=== PATIENT | male | born 1970 | race Caucasian/White ===

== ENCOUNTER → 2018-09-15 | Outpatient (CLI) | payer OTHER ==
[~2018-09-15] MED LIST: ARNUITY ELLIP200 MCG INH; CYMBALTA60 MG PO; Ipratropium Brom3 ML INH; LIPITOR20 MG PO; LISINOPRIL5 MG PO; METFORMIN850 MG PO; NEURONTIN300 MG PO; PULMICORT0.25 MG/2 INH; SPIRIVA RESPIMAT4 GM INH; STRIVERDI RESPIM4 GM INH; TRAZODONE50 MG PO; VICTOZA SQ; VITAMIN B COMP1 EAC1 PO; VITAMIN D5000 UNI1 PO
[2018-09-15 14:44] LABS: BASO # 0.1 10*3/uL (0.0-0.1); BASO % 0.6 % (0.0-1.0); EOS # 0.4 10*3/uL (0.0-0.4); EOS % 3.1 % (1.0-4.0); HEMATOCRIT 47.5 % (42.0-52.0); HEMOGLOBIN 15.3 g/dl (14.0-18.0); LYMPH # 4.9 10*3/uL (1.3-4.4); LYMPH % 40.3 % (27.0-41.0); MEAN CELL VOLUME 91.2 fl (80.0-94.0); MEAN CORPUSCULAR HGB 29.4 pg (27.0-31.0); MEAN CORPUSCULAR HGB CONC 32.2 g/dl (33.0-37.0); MEAN PLATELET VOLUME 9.9 fl (9.6-12.3); MONO # 0.6 10*3/uL (0.1-1.0); NEUT # 6.1 10*3/uL (2.3-7.9); NEUT % 50.7 % (47.0-73.0); PLATELET COUNT AUTOMATED 317 10*3/uL (130-400); RED BLOOD COUNT 5.21 10*6/uL (4.50-5.90); RED CELL DISTRI WIDTH 12.9 % (0-14.5); WHITE BLOOD COUNT 12.1 10*3/uL (4.8-10.8)
[2018-09-15 15:15] LABS: ALBUMIN 3.6 gm/dl (3.1-4.5); ALKALINE PHOSPHATASE 88 U/L (45-117); BUN 9 mg/dl (7-24); CHLORIDE 103 mmol/L (98-107); CHOLESTEROL 146 mg/dL (<200); CREATININE 0.84 mg/dL (0.70-1.30); HDL CHOLESTEROL 45 mg/dl (40-60); LDL CHOLESTEROL 77 mg/dL (9-159); POTASSIUM 4.3 mmol/L (3.5-5.1); SGOT/AST 15 IU/L (3-35); SGPT/ALT 27 U/L (12-78); SODIUM 139 mmol/L (136-145); TOTAL PROTEIN 7.4 gm/dL (6.4-8.2); TRIGLYCERIDES 120 mg/dl (<150); VLDL CHOLESTEROL 24 mg/dL (6-40)
[2018-09-15 15:22] LABS: THYROID STIM HORMONE (HS) 0.709 uIU/ml (0.358-4.75); VITAMIN D, 25-HYDROXY 67.2 ng/mL (30-100)
== END | disposition home or self-care (01) ==
LOC: LAB 14:02
PROVIDERS: Registered Nurse Flight
DX: E55.9 Vitamin D deficiency, unspecified (principal); E11.42 Type 2 diabetes mellitus with diabetic polyneuropathy; E78.5 Hyperlipidemia, unspecified

== ENCOUNTER 2018-12-11 22:07 | Emergency (ER) | payer OTHER ==
[~2018-12-11] VITALS: Ht 177.8 cm; Wt 152.0 kg
== END 2018-12-12 00:47 | disposition home or self-care (01) ==
LOC: ED 22:07
DX: S61.210A Laceration without foreign body of right index finger without damage to nail, initial encounter (principal); F17.200 Nicotine dependence, unspecified, uncomplicated; Z79.899 Other long term (current) drug therapy; Z98.890 Other specified postprocedural states; Z88.0 Allergy status to penicillin; W26.0XXA Contact with knife, initial encounter; Y93.89 Activity, other specified; Y92.090 Kitchen in other non-institutional residence as the place of occurrence of the external cause; Y99.9 Unspecified external cause status

== ENCOUNTER → 2018-12-19 | Outpatient (CLI) | payer OTHER ==
[2018-12-19 13:38] LABS: BASO # 0.1 10*3/uL (0.0-0.1); BASO % 0.8 % (0.0-1.0); EOS # 0.5 10*3/uL (0.0-0.4); HEMATOCRIT 47.5 % (42.0-52.0); HEMOGLOBIN 15.6 g/dl (14.0-18.0); LYMPH # 4.8 10*3/uL (1.3-4.4); LYMPH % 45.1 % (27.0-41.0); MEAN CELL VOLUME 92.6 fl (80.0-94.0); MEAN CORPUSCULAR HGB 30.4 pg (27.0-31.0); MEAN CORPUSCULAR HGB CONC 32.8 g/dl (33.0-37.0); MEAN PLATELET VOLUME 9.9 fl (9.6-12.3); MONO # 0.7 10*3/uL (0.1-1.0); MONO % 6.4 % (3.0-9.0); NEUT # 4.5 10*3/uL (2.3-7.9); NEUT % 42.4 % (47.0-73.0); PLATELET COUNT AUTOMATED 265 10*3/uL (130-400); RED BLOOD COUNT 5.13 10*6/uL (4.50-5.90); RED CELL DISTRI WIDTH 12.9 % (0-14.5); WHITE BLOOD COUNT 10.5 10*3/uL (4.8-10.8)
== END | disposition home or self-care (01) ==
LOC: LAB 13:04
PROVIDERS: Registered Nurse Flight
DX: E11.42 Type 2 diabetes mellitus with diabetic polyneuropathy (principal); D72.829 Elevated white blood cell count, unspecified

== ENCOUNTER → 2019-03-26 | Outpatient (CLI) | payer OTHER ==
[2019-03-26 14:57] LABS: HEMATOCRIT 47.2 % (42.0-52.0); HEMOGLOBIN 15.9 g/dl (14.0-18.0); MEAN CELL VOLUME 90.6 fl (80.0-94.0); MEAN CORPUSCULAR HGB 30.5 pg (27.0-31.0); MEAN CORPUSCULAR HGB CONC 33.7 g/dl (33.0-37.0); MEAN PLATELET VOLUME 9.5 fl (9.6-12.3); RED BLOOD COUNT 5.21 10*6/uL (4.50-5.90); RED CELL DISTRI WIDTH 12.6 % (0-14.5); WHITE BLOOD COUNT 9.7 10*3/uL (4.8-10.8)
[2019-03-26 15:27] LABS: ALBUMIN 3.5 gm/dl (3.1-4.5); BUN 12 mg/dl (7-24); CHLORIDE 107 mmol/L (98-107); CHOLESTEROL 237 mg/dL (<200); CREATININE 0.92 mg/dL (0.70-1.30); POTASSIUM 4.1 mmol/L (3.5-5.1); SGOT/AST 11 IU/L (3-35); SGPT/ALT 16 U/L (12-78); SODIUM 140 mmol/L (136-145); TRIGLYCERIDES 192 mg/dl (<150); VLDL CHOLESTEROL 38 mg/dL (6-40)
[2019-03-26 15:30] LABS: ALKALINE PHOSPHATASE 109 U/L (45-117); HDL CHOLESTEROL 43 mg/dl (40-60); LDL CHOLESTEROL 156 mg/dL (9-159)
== END | disposition home or self-care (01) ==
LOC: LAB 14:06
PROVIDERS: Registered Nurse Flight
DX: E11.42 Type 2 diabetes mellitus with diabetic polyneuropathy (principal); R53.83 Other fatigue; E78.5 Hyperlipidemia, unspecified

== ENCOUNTER 2019-06-21 16:07 | Inpatient (IN) | payer OTHER ==
[~2019-06-21] VITALS: Ht 177.8 cm; Wt 158.4 kg
[~2019-06-21 16:07] MED LIST changes: -HUMALOG100 UNIT/1 SQ; -LANTUS SOL100 UNIT/1 SQ; -LISINOPRIL2.5 MG PO; -LOPRESSOR25 MG PO; -PRAMIPEXOLE D0.25 MG PO; -RESTORIL30 M1 PO; -WELLBUTRIN SR150 MG PO; -ZITHROMAX250 MG PO
[2019-06-21 16:08] VITALS: BP 155/92
[2019-06-21 16:35] LABS: BASO # 0.1 10*3/uL (0.0-0.1); BASO % 0.8 % (0.0-1.0); EOS # 0.2 10*3/uL (0.0-0.4); EOS % 2.4 % (1.0-4.0); HEMATOCRIT 48.9 % (42.0-52.0); HEMOGLOBIN 16.9 g/dl (14.0-18.0); LYMPH # 3.8 10*3/uL (1.3-4.4); LYMPH % 39.5 % (27.0-41.0); MEAN CELL VOLUME 87.9 fl (80.0-94.0); MEAN CORPUSCULAR HGB 30.4 pg (27.0-31.0); MEAN CORPUSCULAR HGB CONC 34.6 g/dl (33.0-37.0); MEAN PLATELET VOLUME 10.4 fl (9.6-12.3); MONO # 0.5 10*3/uL (0.1-1.0); MONO % 5.5 % (3.0-9.0); NEUT % 51.4 % (47.0-73.0); PLATELET COUNT AUTOMATED 313 10*3/uL (130-400); RED BLOOD COUNT 5.56 10*6/uL (4.50-5.90); RED CELL DISTRI WIDTH 12.3 % (0-14.5); WHITE BLOOD COUNT 9.6 10*3/uL (4.8-10.8)
[2019-06-21 16:50] LABS: ALBUMIN 3.6 gm/dl (3.1-4.5); ALKALINE PHOSPHATASE 144 U/L (45-117); BUN 10 mg/dl (7-24); CHLORIDE 97 mmol/L (98-107); CREATININE 1.48 mg/dL (0.70-1.30); POTASSIUM 4.3 mmol/L (3.5-5.1); SGOT/AST 23 IU/L (3-35); SGPT/ALT 38 U/L (12-78); SODIUM 128 mmol/L (136-145); TOTAL PROTEIN 7.3 gm/dL (6.4-8.2)
[2019-06-21 17:27] LABS: BILIRUBIN NEGATIVE (NEGATIVE); BLOOD NEGATIVE (NEGATIVE); CLARITY CLEAR (CLEAR); COLOR YELLOW (YELLOW); GLUCOSE 3+ (NEGATIVE); KETONE NEGATIVE (NEGATIVE); LEUKO ESTERASE NEGATIVE (NEGATIVE); NITRITE NEGATIVE (NEGATIVE); PH 5.5 (5.0-9.0); SPECIFIC GRAVITY <= 1.005 (1.005-1.030); UROBILINOGEN 0.2 E.U./dl (0.2-1.0)
[2019-06-21 17:30] VITALS: BP 150/80
[2019-06-21 17:39] LABS: EPITHELIAL CELLS 0-2; YEAST 1+
--- NOTE | 2019-06-21 18:15 | NUR ---
A 49, admitted to , under the services of DEANA Mojica DO with a diagnosis of UNCONTROLLED DM WITH HYPERGLYCEMIA, COPD EXACERBATION. Chief complaint is ABNORMAL LABS. Patient arrived via bed from ER. Monitor applied. Initial assessment completed. Vital signs taken and recorded. DEANA MOJICA DO notified of admission to the unit. Orders received. See assessment for past medical history, medications and allergies. Patient and/or family oriented to unit. [facility] visitation policy reviewed. Clothing/patient valuable form completed. JUAN LUIS LLOYD
--- NOTE | 2019-06-21 18:30 | NUR ---
DR KUMAR NOTIFIED BS 425 AND REPEATED 468. ALSO LACTIC ACID 3.0
--- NOTE | 2019-06-21 18:45 | NUR ---
GIVE 10 UNITS INSULIN NOW PER DR HUERTA.
[2019-06-21] MEDS ORDERED: RESTORIL30 M1 PO (18:51)
[2019-06-21] MEDS ORDERED: WELLBUTRIN SR150 MG PO (18:52)
[2019-06-21] MEDS ORDERED: PRAMIPEXOLE D0.25 MG PO (18:52)
[2019-06-21 18:57] VITALS: BP 124/51
--- NOTE | 2019-06-21 19:10 | NUR ---
PHYSICIAN WAS NOTIFIED OF DR. GRAY CONSULT. RESPONSE OF NOTIFICATION WAS OK DR NUNEZ WILL SEE HIM IN AM AND I WILL BE MEDICAL FILE CLERK OVERNIGHT IF THERE ARE ANY PROBLEMS.. JUAN LUIS LLOYD
[2019-06-21 20:00] VITALS: BP 133/78
[2019-06-22] VITALS: BP 107/72
[2019-06-22 06:43] LABS: BASO # 0.1 10*3/uL (0.0-0.1); BASO % 0.7 % (0.0-1.0); EOS # 0.4 10*3/uL (0.0-0.4); EOS % 4.1 % (1.0-4.0); HEMATOCRIT 44.9 % (42.0-52.0); HEMOGLOBIN 15.2 g/dl (14.0-18.0); LYMPH # 4.6 10*3/uL (1.3-4.4); LYMPH % 48.5 % (27.0-41.0); MEAN CELL VOLUME 89.4 fl (80.0-94.0); MEAN CORPUSCULAR HGB 30.3 pg (27.0-31.0); MEAN CORPUSCULAR HGB CONC 33.9 g/dl (33.0-37.0); MEAN PLATELET VOLUME 10.2 fl (9.6-12.3); MONO # 0.6 10*3/uL (0.1-1.0); MONO % 6.5 % (3.0-9.0); NEUT # 3.8 10*3/uL (2.3-7.9); NEUT % 39.8 % (47.0-73.0); PLATELET COUNT AUTOMATED 264 10*3/uL (130-400); RED BLOOD COUNT 5.02 10*6/uL (4.50-5.90); RED CELL DISTRI WIDTH 12.6 % (0-14.5); WHITE BLOOD COUNT 9.5 10*3/uL (4.8-10.8)
[2019-06-22 07:15] LABS: ALBUMIN 2.9 gm/dl (3.1-4.5); ALKALINE PHOSPHATASE 100 U/L (45-117); BUN 7 mg/dl (7-24); CHLORIDE 107 mmol/L (98-107); CHOLESTEROL 210 mg/dL (<200); CREATININE 0.91 mg/dL (0.70-1.30); FREE T4 1.11 ng/dl (0.76-1.46); HDL CHOLESTEROL 28 mg/dl (40-60); LDL CHOLESTEROL 106 mg/dL (9-159); PHOSPHOROUS 2.9 mg/dL (2.5-4.9); POTASSIUM 3.3 mmol/L (3.5-5.1); SGOT/AST 18 IU/L (3-35); SGPT/ALT 34 U/L (12-78); TOTAL PROTEIN 6.1 gm/dL (6.4-8.2); TRIGLYCERIDES 379 mg/dl (<150); VLDL CHOLESTEROL 76 mg/dL (6-40)
[2019-06-22 07:20] LABS: THYROID STIM HORMONE (HS) 0.786 uIU/ml (0.358-4.75)
[2019-06-22 07:26] LABS: SODIUM 140 mmol/L (136-145)
[2019-06-22 07:30] VITALS: BP 116/72
--- NOTE | 2019-06-22 07:30 | NUR ---
ASSESSMENT COMPLETED AND DOCUMENTED. PT RESTING IN BED WITH NO COMPLAINTS AT THIS TIME. CALL LIGHT IN REACH. SHARMAINE PINA SPLAINEYCC
--- NOTE | 2019-06-22 09:30 | NUR ---
PT HAS NO COMPLAINTS AT THIS TIME. ECHO IS BEING DONE AT THE BEDSIDE. SHARMAINE PINA [facility] [place]
[2019-06-22 10:14] LABS: VITAMIN D, 25-HYDROXY 41.9 ng/mL (30-100)
[2019-06-22 11:57] VITALS: BP 116/69
--- NOTE | 2019-06-22 11:57 | NUR ---
ASSESSMENT COMPLTED AND DOCUMENTED. PT IS RESTING IN BED COMFORTABLY WITH NO COMPLAINTS AT THIS TIME. SHARMAINE PINA SPCC
--- NOTE | 2019-06-22 13:18 | NUR ---
Grain Picker in to talk to patient. Patient states lives at HOME with ALONE. There are NO steps in the home. Physician: Arabella TRINH [facility]acy: [facility] Home health services: NONE Patient's level of ADLs: INDEPENDENT Patient has working utilities: YES DME: GLUCOMETER, CPAP, NEBULIZER Follow-up physician's appointment after d/c: WILL BE MADE BY HOSPITALIST NURSE DIRECTOR ON DISCHARGE. Does patient want to access PORTAL?: NO Discharge plan PT LIVES AT HOME ALONE AND STATES HE IS INDEPENDENT IN HIS CARE. DENIES HE WILL HAVE ANY NEEDS ON DISCHARGE. WILL RETURN HOME WHEN MEDICALLY STABLE. WILL CONTINUE TO FOLLOW. STATES HE WILL HAVE A RIDE HOME.. ASHU DAVIDSON
--- NOTE | 2019-06-22 13:26 | NUR ---
PT RESTING IN BED COMFORTABLY WITH NO COMPLAINTS AT THIS TIME. REPORT GIVEN TO LORRAINE YING. SHARMAINE PINA SPNRCC
[2019-06-22 16:00] VITALS: BP 115/73
[2019-06-22 20:00] VITALS: BP 120/71
--- NOTE | 2019-06-22 20:06 | NUR ---
24 HR CHART CHECK COMPLETE.
[2019-06-23] VITALS: BP 106/48
--- NOTE | 2019-06-23 00:20 | NUR ---
PT RESTING IN BED. RESP-EASY AND REGULAR. IVF INFUSING WITH NO PROBLEM. NO C/O AT THIS TIME. CALL LIGHT IN REACH. SEE SHIFT ASSESSMENT.
--- NOTE | 2019-06-23 04:00 | NUR ---
PT RESTING IN BED WITH EYES CLOSED. RESP-EASY AND REGULAR. CALL LIGHT IN REACH.
--- NOTE | 2019-06-23 06:00 | NUR ---
TOLERATED ROUTINE MED WITH NO PROBLEM. [id number], SEE EMAR. CALL LIGHT IN REACH.
[2019-06-23 06:32] LABS: BASO # 0.1 10*3/uL (0.0-0.1); BASO % 0.7 % (0.0-1.0); EOS # 0.4 10*3/uL (0.0-0.4); EOS % 4.1 % (1.0-4.0); HEMATOCRIT 43.6 % (42.0-52.0); HEMOGLOBIN 14.8 g/dl (14.0-18.0); LYMPH # 4.2 10*3/uL (1.3-4.4); LYMPH % 48.5 % (27.0-41.0); MEAN CELL VOLUME 90.8 fl (80.0-94.0); MEAN CORPUSCULAR HGB 30.8 pg (27.0-31.0); MEAN CORPUSCULAR HGB CONC 33.9 g/dl (33.0-37.0); MONO # 0.5 10*3/uL (0.1-1.0); MONO % 5.4 % (3.0-9.0); NEUT # 3.6 10*3/uL (2.3-7.9); NEUT % 40.8 % (47.0-73.0); PLATELET COUNT AUTOMATED 238 10*3/uL (130-400); RED CELL DISTRI WIDTH 12.5 % (0-14.5); WHITE BLOOD COUNT 8.7 10*3/uL (4.8-10.8)
[2019-06-23 07:02] LABS: ALBUMIN 2.9 gm/dl (3.1-4.5); ALKALINE PHOSPHATASE 99 U/L (45-117); BUN 4 mg/dl (7-24); CHLORIDE 109 mmol/L (98-107); CREATININE 0.83 mg/dL (0.70-1.30); POTASSIUM 3.4 mmol/L (3.5-5.1); SGOT/AST 22 IU/L (3-35); SGPT/ALT 38 U/L (12-78); SODIUM 140 mmol/L (136-145); TOTAL PROTEIN 5.9 gm/dL (6.4-8.2)
[2019-06-23 12:00] VITALS: BP 110/75
[2019-06-23 16:00] VITALS: BP 139/76
[2019-06-23 20:00] VITALS: BP 111/65
--- NOTE | 2019-06-23 20:00 | NUR ---
RESTING IN BED WITH HOB SLIGHTLY ELEVATED. ALERT/ORIENTED. PULSE OX 98% ON ROOM AIR. LUNGS DIMINISHED BILATERALLY; NO COUGH NOTED AT THIS TIME. PT. VOICES NO C/O AT THIS TIME; NO DISTRESS NOTED. CALL LIGHT WITHIN REACH.
--- NOTE | 2019-06-23 22:00 | NUR ---
BLOOD SUGAR 286; COVERAGE PER EMAR.
--- NOTE | 2019-06-23 23:00 | NUR ---
IV started right forearm with #22 protective cath after 1 attempts. Site prepped with Chloroprep. Sterile dressing applied. Patient tolerated procedure well. IV infusing at cc/hr. CHLOE HAHN
[2019-06-24] VITALS: BP 92/52
--- NOTE | 2019-06-24 06:00 | NUR ---
BLOOD SUGAR 228; COVERAGE PER EMAR. PT. VOICES NO C/O AT THIS TIME. CALL LIGHT WITHIN REACH.
[2019-06-24 07:21] LABS: BUN 7 mg/dl (7-24); CHLORIDE 110 mmol/L (98-107); CREATININE 0.84 mg/dL (0.70-1.30); POTASSIUM 3.8 mmol/L (3.5-5.1); SODIUM 140 mmol/L (136-145)
[2019-06-24 08:00] VITALS: BP 122/78
--- NOTE | 2019-06-24 08:30 | NUR ---
24 HR chart check completed.
--- NOTE | 2019-06-24 09:00 | NUR ---
RESTING IN BED WITH NO ACUTE DISTRESS NOTED. RESPIRATIONS EASY. LUNGS DIMINISHED. PULSE OX 95% RA. CLAIMS INFREQUENT PRODUCTIVE COUGH FOR YELLOW. CALL LIGHT WITHIN REACH. NO VOICED COMPLAINTS
--- NOTE | 2019-06-24 09:30 | NUR ---
DR NUNEZ (CARDIOLOGY) HERE TO ASSESS PATIENT AND DISCUSS PLAN OF CARE
--- NOTE | 2019-06-24 09:40 | NUR ---
DR TORRES AND RESIDENTS HERE TO ASSESS PATIENT AND DISCUSS PLAN OF CARE
[2019-06-24 12:00] VITALS: BP 117/72
--- NOTE | 2019-06-24 12:30 | NUR ---
RESTING IN BED WITH NO DISTRESS NOTED. CALL LIGHT WITHIN REACH. NO VOICED COMPLAINTS
[2019-06-24 16:00] VITALS: BP 102/54
[2019-06-24 20:00] VITALS: BP 117/84
[2019-06-25] VITALS: BP 102/60
--- NOTE | 2019-06-25 03:35 | NUR ---
24 HR chart check completed.
[2019-06-25 08:00] VITALS: BP 98/72
--- NOTE | 2019-06-25 09:01 | NUR ---
pt off floor for stress test.
--- NOTE | 2019-06-25 10:14 | NUR ---
INFORMED CONSENT SIGNED FOR LEXISCAN STRESS TEST WITH DR. FOX. RESTING EKG NSR, HR 84, BP 118/74. PULSE OX 96% AND LUNGS DEMINISHED BILATERALLY. COMPLETED ONE MINUTE OF LEXISCAN PROTOCOL RECEIVING LEXISCAN 0.4MG OVER 10 SEC[address] NO ARRHYTHMIAS OR ST CHANGES NOTED. PT C/O ODD FEELING. LAST RECOVERY HR 98, BP 112/68. WAITING NUCLEAR SCANNING IN STABLE CONDITION.
--- NOTE | 2019-06-25 10:52 | NUR ---
PT STATES HE WILL RETURN HOME WITH NO NEEDS ON DISCHARGE. FOR STRESS TEST TODAY. WILL CONTINUE TO FOLLOW.
[2019-06-25 11:58] VITALS: BP 127/61
[2019-06-25] MEDS ORDERED: ZITHROMAX250 MG PO (16:07)
[2019-06-25] MEDS ORDERED: LISINOPRIL2.5 MG PO (16:07)
[2019-06-25] MEDS ORDERED: LOPRESSOR25 MG PO (16:07)
[2019-06-25] MEDS ORDERED: HUMALOG100 UNIT/1 SQ (16:16)
[2019-06-25] MEDS ORDERED: LANTUS SOL100 UNIT/1 SQ (16:16)
--- NOTE | 2019-06-25 16:54 | NUR ---
[facility] Discharge instructions reviewed with patient/family. Patient receptive and verbalizes understanding. Follow-up care arranged. Written instructions given to patient/family. STEPAN ANDERS
== END 2019-06-25 17:11 | disposition home or self-care (01) | DRG 420 ==
LOC: ED 16:07 → 4E 17:08 → EDHOLD 17:08 → 4E 18:12
PROVIDERS: Emergency Medicine; Hospitalist; Internal Medicine; ADMIT Internal Medicine
PROC: 4A02XM4 Measurement of Cardiac Total Activity, External Approach (ICD-10-PCS; principal; 2019-06-25)
PROC: 3E073KZ Introduction of Other Diagnostic Substance into Coronary Artery, Percutaneous Approach (ICD-10-PCS; 2019-06-25)
DX: E11.65 Type 2 diabetes mellitus with hyperglycemia (principal); N17.0 Acute kidney failure with tubular necrosis; J44.1 Chronic obstructive pulmonary disease with (acute) exacerbation; E87.1 Hypo-osmolality and hyponatremia; R74.0 Nonspecific elevation of levels of transaminase and lactic acid dehydrogenase [LDH]; R07.89 Other chest pain; I10 Essential (primary) hypertension; E78.5 Hyperlipidemia, unspecified; E66.01 Morbid (severe) obesity due to excess calories; Z68.43 Body mass index [BMI] 50.0-59.9, adult; E44.0 Moderate protein-calorie malnutrition; E87.8 Other disorders of electrolyte and fluid balance, not elsewhere classified; E87.6 Hypokalemia; F17.210 Nicotine dependence, cigarettes, uncomplicated; E11.49 Type 2 diabetes mellitus with other diabetic neurological complication; G47.33 Obstructive sleep apnea (adult) (pediatric); I25.10 Atherosclerotic heart disease of native coronary artery without angina pectoris; I47.2 Ventricular tachycardia; Z71.6 Tobacco abuse counseling; Z82.3 Family history of stroke; Z83.3 Family history of diabetes mellitus; Z82.49 Family history of ischemic heart disease and other diseases of the circulatory system; Z88.0 Allergy status to penicillin; Z79.899 Other long term (current) drug therapy

== ENCOUNTER → 2019-06-21 | Outpatient (CLI) | payer OTHER ==
[~2019-06-21] MED LIST changes: +HUMALOG100 UNIT/1 SQ; +LANTUS SOL100 UNIT/1 SQ; +LISINOPRIL2.5 MG PO; +LOPRESSOR25 MG PO; +PRAMIPEXOLE D0.25 MG PO; +RESTORIL30 M1 PO; +WELLBUTRIN SR150 MG PO; +ZITHROMAX250 MG PO
[2019-06-21 13:48] LABS: ALBUMIN 3.4 gm/dl (3.1-4.5); BUN 9 mg/dl (7-24); CHLORIDE 98 mmol/L (98-107); CHOLESTEROL 258 mg/dL (<200); CREATININE 1.47 mg/dL (0.70-1.30); POTASSIUM 4.1 mmol/L (3.5-5.1); SGOT/AST 19 IU/L (3-35); SODIUM 131 mmol/L (136-145)
[2019-06-21 13:50] LABS: ALKALINE PHOSPHATASE 139 U/L (45-117); HDL CHOLESTEROL 28 mg/dl (40-60); SGPT/ALT 38 U/L (12-78); TOTAL PROTEIN 6.9 gm/dL (6.4-8.2); TRIGLYCERIDES 813 mg/dl (<150)
== END | disposition home or self-care (01) ==
LOC: LAB 12:31
PROVIDERS: Registered Nurse Flight
DX: E11.42 Type 2 diabetes mellitus with diabetic polyneuropathy (principal); E78.5 Hyperlipidemia, unspecified

== ENCOUNTER → 2019-12-06 | Outpatient (CLI) | payer OTHER ==
[~2019-12-06] MED LIST changes: +HUMALOG100 UNIT/1 SQ; +LANTUS SOL100 UNIT/1 SQ; +LISINOPRIL2.5 MG PO; +LOPRESSOR25 MG PO; +PRAMIPEXOLE D0.25 MG PO; +RESTORIL30 M1 PO; +WELLBUTRIN SR150 MG PO; +ZITHROMAX250 MG PO
[2019-12-06 11:26] LABS: ALBUMIN 3.3 gm/dl (3.1-4.5); ALKALINE PHOSPHATASE 109 U/L (45-117); BILIRUBIN, DIRECT 0.1 mg/dL (0.0-0.2); BUN 6 mg/dl (7-24); CHLORIDE 108 mmol/L (98-107); CHOLESTEROL 126 mg/dL (<200); CREATININE 0.92 mg/dL (0.70-1.30); FREE T4 1.14 ng/dl (0.76-1.46); HDL CHOLESTEROL 37 mg/dl (40-60); LDL CHOLESTEROL 44 mg/dL (9-159); POTASSIUM 3.7 mmol/L (3.5-5.1); SGOT/AST 20 IU/L (3-35); SGPT/ALT 40 U/L (12-78); SODIUM 137 mmol/L (136-145); TOTAL PROTEIN 6.7 gm/dL (6.4-8.2); TRIGLYCERIDES 226 mg/dl (<150); VLDL CHOLESTEROL 45 mg/dL (6-40)
[2019-12-06 11:34] LABS: BILIRUBIN NEGATIVE (NEGATIVE); BLOOD NEGATIVE (NEGATIVE); CLARITY SL CLOUDY (CLEAR); COLOR YELLOW (YELLOW); GLUCOSE 3+ (NEGATIVE); KETONE NEGATIVE (NEGATIVE); SPECIFIC GRAVITY 1.025 (1.005-1.030); UROBILINOGEN 0.2 E.U./dl (0.2-1.0)
[2019-12-06 11:35] LABS: LEUKO ESTERASE NEGATIVE (NEGATIVE); NITRITE NEGATIVE (NEGATIVE)
== END | disposition home or self-care (01) ==
LOC: LAB 10:27
PROVIDERS: Internal Medicine
DX: E11.65 Type 2 diabetes mellitus with hyperglycemia (principal); E55.9 Vitamin D deficiency, unspecified; E66.01 Morbid (severe) obesity due to excess calories

== ENCOUNTER → 2020-01-30 | Outpatient (CLI) | payer OTHER ==
[2020-01-30 14:45] LABS: HEMATOCRIT 48.9 % (42.0-52.0); MEAN CELL VOLUME 86.2 fl (80.0-94.0); MEAN CORPUSCULAR HGB CONC 34.8 g/dl (33.0-37.0); MEAN PLATELET VOLUME 9.9 fl (9.6-12.3); PLATELET COUNT AUTOMATED 293 10*3/uL (130-400); RED BLOOD COUNT 5.67 10*6/uL (4.50-5.90); RED CELL DISTRI WIDTH 12.1 % (0-14.5); WHITE BLOOD COUNT 11.9 10*3/uL (4.8-10.8)
[2020-01-30 15:11] LABS: BASOPHILS 1 % (0-1); PLATELET SUFFICIENCY NORMAL (NORMAL); TOTAL CELLS COUNTED 100 #CELLS
[2020-01-30 15:20] LABS: ALBUMIN 3.6 gm/dl (3.1-4.5); ALKALINE PHOSPHATASE 114 U/L (45-117); BUN 7 mg/dl (7-24); CHLORIDE 103 mmol/L (98-107); CREATININE 0.87 mg/dL (0.70-1.30); POTASSIUM 3.9 mmol/L (3.5-5.1); SGOT/AST 28 IU/L (3-35); SGPT/ALT 50 U/L (12-78); SODIUM 133 mmol/L (136-145); T3 UPTAKE 35 % (31-39); TOTAL PROTEIN 7.4 gm/dL (6.4-8.2)
[2020-01-30 15:27] LABS: THYROXINE (T4) TOTAL 9.9 ug/dl (4.5-12.1)
[2020-01-31 09:07] LABS: FOLLICLE STIMULATING HORMONE 6.8 mIU/mL (1.5-12.4); LUTEINIZING HORMONE 11.1 mIU/mL (1.7-8.6); PROGESTERONE 0.1 ng/mL (0.0-0.5); PROLACTIN 6.9 ng/mL (4.0-15.2)
== END | disposition home or self-care (01) ==
LOC: LAB 13:00 → US 13:00
PROVIDERS: Urology
DX: N28.89 Other specified disorders of kidney and ureter (principal); N40.0 Benign prostatic hyperplasia without lower urinary tract symptoms; R53.82 Chronic fatigue, unspecified

== ENCOUNTER → 2020-02-13 | Outpatient (CLI) | payer OTHER ==
[2020-02-13 10:21] LABS: BILIRUBIN NEGATIVE (NEGATIVE); BLOOD NEGATIVE (NEGATIVE); CLARITY SL CLOUDY (CLEAR); COLOR YELLOW (YELLOW); GLUCOSE 3+ (NEGATIVE); KETONE 1+ (NEGATIVE); LEUKO ESTERASE NEGATIVE (NEGATIVE); NITRITE NEGATIVE (NEGATIVE); SPECIFIC GRAVITY 1.015 (1.005-1.030); UROBILINOGEN 0.2 E.U./dl (0.2-1.0)
[2020-02-13 10:48] LABS: ALBUMIN 3.5 gm/dl (3.1-4.5); ALKALINE PHOSPHATASE 126 U/L (45-117); BILIRUBIN, DIRECT 0.2 mg/dL (0.0-0.2); BUN 5 mg/dl (7-24); CHLORIDE 104 mmol/L (98-107); CHOLESTEROL 93 mg/dL (<200); CREATININE 0.93 mg/dL (0.70-1.30); HDL CHOLESTEROL 40 mg/dl (40-60); LDL CHOLESTEROL 19 mg/dL (9-159); POTASSIUM 3.8 mmol/L (3.5-5.1); SGOT/AST 21 IU/L (3-35); SGPT/ALT 49 U/L (12-78); SODIUM 135 mmol/L (136-145); TOTAL PROTEIN 7.1 gm/dL (6.4-8.2); TRIGLYCERIDES 172 mg/dl (<150); VLDL CHOLESTEROL 34 mg/dL (6-40)
== END | disposition home or self-care (01) ==
LOC: LAB 09:51
PROVIDERS: Internal Medicine
DX: E11.65 Type 2 diabetes mellitus with hyperglycemia (principal); E78.5 Hyperlipidemia, unspecified; E55.9 Vitamin D deficiency, unspecified

== ENCOUNTER → 2020-05-27 | Outpatient (CLI) | payer OTHER ==
[2020-05-27 09:45] LABS: BILIRUBIN Negative (Negative); BLOOD Trace-Lysed (Negative); CLARITY Cloudy (Clear); COLOR Yellow (Yellow); GLUCOSE 3+ (Negative); KETONE Trace (Negative); LEUKO ESTERASE 1+ (Negative); NITRITE Negative (Negative); SPECIFIC GRAVITY >= 1.030 (1.001-1.030); UROBILINOGEN 0.2 E.U./dl (0.0-1.0)
[2020-05-27 09:53] LABS: ALBUMIN 3.4 gm/dl (3.1-4.5); ALKALINE PHOSPHATASE 148 U/L (45-117); BILIRUBIN, DIRECT 0.2 mg/dL (0.0-0.2); BUN 5 mg/dl (7-24); CHLORIDE 105 mmol/L (98-107); CHOLESTEROL 157 mg/dL (<200); CREATININE 0.74 mg/dL (0.70-1.30); HDL CHOLESTEROL 35 mg/dl (40-60); LDL CHOLESTEROL 71 mg/dL (9-159); POTASSIUM 3.7 mmol/L (3.5-5.1); SGOT/AST 17 IU/L (3-35); SGPT/ALT 43 U/L (12-78); SODIUM 137 mmol/L (136-145); TRIGLYCERIDES 254 mg/dl (<150); VLDL CHOLESTEROL 51 mg/dL (6-40)
[2020-05-27 10:11] LABS: VITAMIN D, 25-HYDROXY 37.8 ng/mL (30-100)
[2020-05-27 11:03] LABS: BACTERIA 2+; EPITHELIAL CELLS 21-30; WBC 21-30 wbc/hpf (0-5); YEAST 3+
== END | disposition home or self-care (01) ==
LOC: LAB 09:15
PROVIDERS: ATTEND Internal Medicine
DX: E11.42 Type 2 diabetes mellitus with diabetic polyneuropathy (principal); E78.5 Hyperlipidemia, unspecified; G62.9 Polyneuropathy, unspecified; E55.9 Vitamin D deficiency, unspecified

== ENCOUNTER → 2020-09-09 | Outpatient (CLI) | payer OTHER ==
[2020-09-09 15:40] LABS: BILIRUBIN Negative (Negative); BLOOD Negative (Negative); CLARITY Clear (Clear); COLOR Yellow (Yellow); GLUCOSE 3+ (Negative); KETONE 1+ (Negative); LEUKO ESTERASE Negative (Negative); NITRITE Negative (Negative); SPECIFIC GRAVITY >= 1.030 (1.001-1.030); UROBILINOGEN 0.2 E.U./dl (0.0-1.0)
[2020-09-09 15:59] LABS: ALBUMIN 3.3 gm/dl (3.1-4.5); BUN 9 mg/dl (7-24); CHLORIDE 103 mmol/L (98-107); POTASSIUM 3.7 mmol/L (3.5-5.1); SODIUM 134 mmol/L (136-145)
[2020-09-09 16:03] LABS: ALKALINE PHOSPHATASE 192 U/L (45-117); BILIRUBIN, DIRECT 0.1 mg/dL (0.0-0.2); CHOLESTEROL 245 mg/dL (<200); CREATININE 0.83 mg/dL (0.70-1.30); HDL CHOLESTEROL 37 mg/dl (40-60); SGOT/AST 9 IU/L (3-35); SGPT/ALT 28 U/L (12-78); TOTAL PROTEIN 7.1 gm/dL (6.4-8.2); TRIGLYCERIDES 481 mg/dl (<150)
[2020-09-09 16:04] LABS: WBC 21-30 wbc/hpf (0-5)
[2020-09-09 16:05] LABS: BACTERIA 1+; YEAST 2+
[2020-09-09 17:14] LABS: VITAMIN D, 25-HYDROXY 20.6 ng/mL (30-100)
== END | disposition home or self-care (01) ==
LOC: LAB 15:15
PROVIDERS: ATTEND Internal Medicine
DX: E11.65 Type 2 diabetes mellitus with hyperglycemia (principal); E78.5 Hyperlipidemia, unspecified; E55.9 Vitamin D deficiency, unspecified; G62.9 Polyneuropathy, unspecified

== ENCOUNTER → 2020-09-12 | Outpatient (CLI) | payer OTHER | END | disposition home or self-care (01) | LOC: LAB 10:41 | PROVIDERS: ATTEND Internal Medicine | DX: N39.0 Urinary tract infection, site not specified (principal) ==

== ENCOUNTER 2020-11-30 23:51 | Inpatient (IN) | payer OTHER ==
[~2020-11-30] VITALS: Ht 177.8 cm; Wt 138.9 kg
[~2020-11-30 23:51] MED LIST changes: +GLUCOPHAGE500 M1 PO; -METFORMIN850 MG PO; -NEURONTIN300 MG PO; +NEURONTIN600 MG PO; +VITAMIN D350 MCG PO; -VITAMIN D5000 UNI1 PO
[2020-12-01] VITALS (10 sets, daily range): BP systolic 125–162; BP diastolic 54–99
[2020-12-01 01:15] LABS: BASO # 0.2 10*3/uL (0.0-0.1); BASO % 0.8 % (0.0-1.0); EOS # 1.3 10*3/uL (0.0-0.4); EOS % 6.6 % (1.0-4.0); HEMATOCRIT 49.3 % (42.0-52.0); LYMPH # 3.8 10*3/uL (1.3-4.4); LYMPH % 18.7 % (27.0-41.0); MEAN CELL VOLUME 85.9 fl (80.0-94.0); MEAN CORPUSCULAR HGB CONC 34.9 g/dl (33.0-37.0); MONO # 1.1 10*3/uL (0.1-1.0); MONO % 5.5 % (3.0-9.0); NEUT # 13.7 10*3/uL (2.3-7.9); NEUT % 67.7 % (47.0-73.0); PLATELET COUNT AUTOMATED 312 10*3/uL (130-400); RED BLOOD COUNT 5.74 10*6/uL (4.50-5.90); RED CELL DISTRI WIDTH 12.2 % (0-14.5); WHITE BLOOD COUNT 20.3 10*3/uL (4.8-10.8)
[2020-12-01 01:33] LABS: ALBUMIN 3.1 gm/dl (3.1-4.5); ALKALINE PHOSPHATASE 154 U/L (45-117); BUN 6 mg/dl (7-24); CHLORIDE 101 mmol/L (98-107); CREATININE 0.92 mg/dL (0.70-1.30); POTASSIUM 4.2 mmol/L (3.5-5.1); SGOT/AST 15 IU/L (3-35); SGPT/ALT 15 U/L (12-78); SODIUM 134 mmol/L (136-145); TOTAL PROTEIN 7.7 gm/dL (6.4-8.2)
[2020-12-01 01:34] LABS: TROPONIN I < 0.015 ng/ml (<0.045)
[2020-12-01 06:22] LABS: BASO # 0.1 10*3/uL (0.0-0.1); BASO % 0.6 % (0.0-1.0); EOS # 0.1 10*3/uL (0.0-0.4); EOS % 0.6 % (1.0-4.0); HEMATOCRIT 52.2 % (42.0-52.0); LYMPH # 1.3 10*3/uL (1.3-4.4); LYMPH % 7.9 % (27.0-41.0); MEAN CELL VOLUME 87.7 fl (80.0-94.0); MEAN CORPUSCULAR HGB 29.6 pg (27.0-31.0); MEAN CORPUSCULAR HGB CONC 33.7 g/dl (33.0-37.0); MEAN PLATELET VOLUME 10.3 fl (9.6-12.3); MONO # 0.2 10*3/uL (0.1-1.0); MONO % 1.4 % (3.0-9.0); NEUT # 14.8 10*3/uL (2.3-7.9); NEUT % 87.8 % (47.0-73.0); PLATELET COUNT AUTOMATED 297 10*3/uL (130-400); RED BLOOD COUNT 5.95 10*6/uL (4.50-5.90); RED CELL DISTRI WIDTH 12.2 % (0-14.5); WHITE BLOOD COUNT 16.8 10*3/uL (4.8-10.8)
[2020-12-01 06:26] LABS: ALBUMIN 3.2 gm/dl (3.1-4.5); ALKALINE PHOSPHATASE 155 U/L (45-117); BUN 7 mg/dl (7-24); CHLORIDE 102 mmol/L (98-107); CREATININE 0.91 mg/dL (0.70-1.30); FREE T4 1.34 ng/dl (0.76-1.46); POTASSIUM 4.6 mmol/L (3.5-5.1); SGOT/AST 12 IU/L (3-35); SGPT/ALT 16 U/L (12-78); SODIUM 135 mmol/L (136-145); TOTAL PROTEIN 8.2 gm/dL (6.4-8.2)
[2020-12-01] MEDS ORDERED: HUMALOG MI100 UNIT/1 SQ (11:22)
[2020-12-01] MEDS ORDERED: GNP FISH OIL 11 EAC1 PO (11:23)
[2020-12-01] MEDS ORDERED: HUMULIN R500 UNIT/1 SQ (11:24)
[2020-12-01] MEDS ORDERED: TRULICITY3 MG/0.5 M SQ (11:28)
[2020-12-01] MEDS ORDERED: CRESTOR40 M1 PO (11:30)
[2020-12-01] MEDS ORDERED: ZETIA10 MG PO (11:31)
[2020-12-01] MEDS ORDERED: REXULTI2 MG PO (11:32)
[2020-12-01] MEDS ORDERED: GLIPIZIDE5 MG PO (11:35)
[2020-12-01] MEDS ORDERED: TRULICITY4.5 MG/0.5 SQ (11:37)
[2020-12-01] MEDS ORDERED: DOXEPIN HCL10 MG PO (11:44)
[2020-12-01] MEDS ORDERED: MELATONIN5 M7 PO (11:44)
[2020-12-01] MEDS ORDERED: ASMANEX220 MC5 INH (11:45)
[2020-12-01] MEDS ORDERED: SEREVENT DISKU50 MCG INH (11:46)
[2020-12-01] MEDS ORDERED: VENT7GM INH (11:48)
[2020-12-01] MEDS ORDERED: FENOFIBRATE145 M1 PO (11:54)
[2020-12-01] MEDS ORDERED: JARDIANCE25 MG PO (11:55)
[2020-12-02] VITALS: BP 118/50
[2020-12-02 06:37] LABS: HEMATOCRIT 47.3 % (42.0-52.0); MEAN CELL VOLUME 87.8 fl (80.0-94.0); MEAN CORPUSCULAR HGB 30.1 pg (27.0-31.0); MEAN CORPUSCULAR HGB CONC 34.2 g/dl (33.0-37.0); MEAN PLATELET VOLUME 10.5 fl (9.6-12.3); PLATELET COUNT AUTOMATED 349 10*3/uL (130-400); RED BLOOD COUNT 5.39 10*6/uL (4.50-5.90); RED CELL DISTRI WIDTH 12.1 % (0-14.5); WHITE BLOOD COUNT 25.4 10*3/uL (4.8-10.8)
[2020-12-02 07:11] LABS: TOTAL CELLS COUNTED 100 #CELLS
[2020-12-02 07:13] LABS: BURR CELLS FEW; PLATELET SUFFICIENCY NORMAL (NORMAL); POLYCHROMASIA SLIGHT
[2020-12-02 08:00] VITALS: BP 161/93
[2020-12-02 12:00] VITALS: BP 132/65
[2020-12-02 16:00] VITALS: BP 144/84
[2020-12-02 20:00] VITALS: BP 156/85
[2020-12-03] VITALS: BP 136/78
[2020-12-03 06:14] LABS: ALKALINE PHOSPHATASE 125 U/L (45-117); BUN 22 mg/dl (7-24); CHLORIDE 100 mmol/L (98-107); POTASSIUM 3.5 mmol/L (3.5-5.1); SGOT/AST 11 IU/L (3-35); SGPT/ALT 15 U/L (12-78); SODIUM 137 mmol/L (136-145); TOTAL PROTEIN 7.5 gm/dL (6.4-8.2)
[2020-12-03 06:17] LABS: HEMATOCRIT 48.4 % (42.0-52.0); MEAN CELL VOLUME 87.4 fl (80.0-94.0); MEAN CORPUSCULAR HGB 30.1 pg (27.0-31.0); MEAN CORPUSCULAR HGB CONC 34.5 g/dl (33.0-37.0); MEAN PLATELET VOLUME 10.2 fl (9.6-12.3); PLATELET COUNT AUTOMATED 449 10*3/uL (130-400); RED BLOOD COUNT 5.54 10*6/uL (4.50-5.90); RED CELL DISTRI WIDTH 11.9 % (0-14.5)
[2020-12-03 06:59] LABS: PLATELET SUFFICIENCY HIGH (NORMAL); POLYCHROMASIA SLIGHT; TOTAL CELLS COUNTED 100 #CELLS
[2020-12-03 08:00] VITALS: BP 142/79
[2020-12-03 12:00] VITALS: BP 126/51
[2020-12-03 16:00] VITALS: BP 141/83
[2020-12-03 20:16] VITALS: BP 138/73
[2020-12-04] VITALS: BP 114/63
[2020-12-04 08:00] VITALS: BP 134/78
[2020-12-04 12:00] VITALS: BP 138/86
[2020-12-04] MEDS ORDERED: PREDNISONE10 MG PO (12:13)
[2020-12-04] MEDS ORDERED: LEVOFLOXACIN750 M2 PO (12:13)
== END 2020-12-04 12:59 | disposition home or self-care (01) | DRG 720 ==
LOC: ED 23:51 → 4E 12-01 04:15 → EDHOLD 12-01 04:15 → 4E 12-01 07:56
PROVIDERS: Emergency Medicine; Internal Medicine; Student in an Organized Health Care Education/Training Program; ADMIT Internal Medicine; ATTEND Internal Medicine
PROC: 5A09357 Assistance with Respiratory Ventilation, Less than 24 Consecutive Hours, Continuous Positive Airway Pressure (ICD-10-PCS; principal; 2020-12-01)
PROC: 5A0935A Assistance with Respiratory Ventilation, Less than 24 Consecutive Hours, High Flow/Velocity Cannula (ICD-10-PCS; 2020-12-01)
PROC: 5A09357 Assistance with Respiratory Ventilation, Less than 24 Consecutive Hours, Continuous Positive Airway Pressure (ICD-10-PCS; 2020-12-02)
PROC: 5A0935A Assistance with Respiratory Ventilation, Less than 24 Consecutive Hours, High Flow/Velocity Cannula (ICD-10-PCS; 2020-12-02)
PROC: 5A09357 Assistance with Respiratory Ventilation, Less than 24 Consecutive Hours, Continuous Positive Airway Pressure (ICD-10-PCS; 2020-12-03)
PROC: 5A0935A Assistance with Respiratory Ventilation, Less than 24 Consecutive Hours, High Flow/Velocity Cannula (ICD-10-PCS; 2020-12-03)
PROC: 5A09357 Assistance with Respiratory Ventilation, Less than 24 Consecutive Hours, Continuous Positive Airway Pressure (ICD-10-PCS; 2020-12-04)
DX: A41.9 Sepsis, unspecified organism (principal); J18.9 Pneumonia, unspecified organism; J96.01 Acute respiratory failure with hypoxia; E87.1 Hypo-osmolality and hyponatremia; E83.39 Other disorders of phosphorus metabolism; E83.41 Hypermagnesemia; R74.8 Abnormal levels of other serum enzymes; R79.82 Elevated C-reactive protein (CRP); F17.210 Nicotine dependence, cigarettes, uncomplicated; I10 Essential (primary) hypertension; J44.0 Chronic obstructive pulmonary disease with (acute) lower respiratory infection; E78.5 Hyperlipidemia, unspecified; Z20.822 Contact with and (suspected) exposure to COVID-19; E11.65 Type 2 diabetes mellitus with hyperglycemia; G47.33 Obstructive sleep apnea (adult) (pediatric); E66.01 Morbid (severe) obesity due to excess calories; Z71.6 Tobacco abuse counseling; Z88.0 Allergy status to penicillin; Z83.3 Family history of diabetes mellitus; Z82.3 Family history of stroke; Z82.49 Family history of ischemic heart disease and other diseases of the circulatory system; Z79.899 Other long term (current) drug therapy; Z68.41 Body mass index [BMI] 40.0-44.9, adult

== ENCOUNTER → 2021-01-22 | Outpatient (CLI) | payer OTHER ==
[~2021-01-22] MED LIST changes: +ASMANEX220 MC5 INH; +CRESTOR40 M1 PO; +DOXEPIN HCL10 MG PO; +FENOFIBRATE145 M1 PO; +GLIPIZIDE5 MG PO; +GNP FISH OIL 11 EAC1 PO; +HUMALOG MI100 UNIT/1 SQ; +HUMULIN R500 UNIT/1 SQ; +JARDIANCE25 MG PO; +LEVOFLOXACIN750 M2 PO; +MELATONIN5 M7 PO; +PREDNISONE10 MG PO; +REXULTI2 MG PO; +SEREVENT DISKU50 MCG INH; +TRULICITY3 MG/0.5 M SQ; +TRULICITY4.5 MG/0.5 SQ; +VENT7GM INH; +ZETIA10 MG PO
== END | disposition home or self-care (01) ==
LOC: CT 10:57
PROVIDERS: ATTEND Internal Medicine Critical Care Medicine
DX: R91.1 Solitary pulmonary nodule (principal); R91.8 Other nonspecific abnormal finding of lung field; J44.9 Chronic obstructive pulmonary disease, unspecified; J45.50 Severe persistent asthma, uncomplicated; G47.33 Obstructive sleep apnea (adult) (pediatric); R40.0 Somnolence; G25.81 Restless legs syndrome; I25.10 Atherosclerotic heart disease of native coronary artery without angina pectoris; Z91.19 Patient's noncompliance with other medical treatment and regimen; Z68.42 Body mass index [BMI] 45.0-49.9, adult; Z68.41 Body mass index [BMI] 40.0-44.9, adult; Z87.891 Personal history of nicotine dependence

== ENCOUNTER → 2022-04-19 | Outpatient (CLI) | payer OTHER ==
[2022-04-19 10:04] LABS: HEMATOCRIT 51.1 % (42.0-52.0); MEAN CELL VOLUME 86.3 fl (80.0-94.0); MEAN CORPUSCULAR HGB 30.9 pg (27.0-31.0); MEAN CORPUSCULAR HGB CONC 35.8 g/dl (33.0-37.0); MEAN PLATELET VOLUME 9.6 fl (9.6-12.3); RED BLOOD COUNT 5.92 10*6/uL (4.50-5.90); RED CELL DISTRI WIDTH 12.5 % (0-14.5); WHITE BLOOD COUNT 8.5 10*3/uL (4.8-10.8)
[2022-04-19 10:22] LABS: ALKALINE PHOSPHATASE 136 U/L (45-117); BUN 13 mg/dl (7-24); CHLORIDE 105 mmol/L (98-107); CHOLESTEROL 236 mg/dL (<200); CPK 32 U/L (39-308); FREE T4 1.02 ng/dl (0.76-1.46); LDL CHOLESTEROL 166 mg/dL (9-159); SGOT/AST 7 IU/L (3-35); SGPT/ALT 21 U/L (12-78); SODIUM 138 mmol/L (136-145); TOTAL PROTEIN 7.1 gm/dL (6.4-8.2); TRIGLYCERIDES 162 mg/dl (<150)
[2022-04-19 11:16] LABS: VITAMIN D, 25-HYDROXY 14.6 ng/mL (30-100)
== END | disposition home or self-care (01) ==
LOC: LAB 09:43
PROVIDERS: ATTEND Family Medicine
DX: E11.9 Type 2 diabetes mellitus without complications (principal); E78.00 Pure hypercholesterolemia, unspecified; I10 Essential (primary) hypertension; Z12.5 Encounter for screening for malignant neoplasm of prostate; E55.9 Vitamin D deficiency, unspecified

== ENCOUNTER → 2022-08-24 | Outpatient (CLI) | payer OTHER ==
[2022-08-24 09:15] LABS: BASO # 0.1 10*3/uL (0.0-0.1); BASO % 1.1 % (0.0-1.0); EOS # 0.8 10*3/uL (0.0-0.4); EOS % 10.3 % (1.0-4.0); HEMATOCRIT 49.2 % (42.0-52.0); LYMPH # 2.5 10*3/uL (1.3-4.4); LYMPH % 32.9 % (27.0-41.0); MEAN CELL VOLUME 87.5 fl (80.0-94.0); MEAN CORPUSCULAR HGB 30.4 pg (27.0-31.0); MEAN CORPUSCULAR HGB CONC 34.8 g/dl (33.0-37.0); MEAN PLATELET VOLUME 9.4 fl (9.6-12.3); MONO # 0.4 10*3/uL (0.1-1.0); MONO % 5.7 % (3.0-9.0); NEUT # 3.8 10*3/uL (2.3-7.9); NEUT % 49.9 % (47.0-73.0); PLATELET COUNT AUTOMATED 263 10*3/uL (130-400); RED BLOOD COUNT 5.62 10*6/uL (4.50-5.90); RED CELL DISTRI WIDTH 12.3 % (0-14.5); WHITE BLOOD COUNT 7.6 10*3/uL (4.8-10.8)
[2022-08-24 09:34] LABS: ALKALINE PHOSPHATASE 127 U/L (46-116); BUN 11 mg/dl (9-23); CHLORIDE 105 mmol/L (98-107); CHOLESTEROL 188 mg/dL (<200); FREE T4 1.23 ng/dl (0.89-1.76); LDL CHOLESTEROL 129 mg/dL (9-159); POTASSIUM 4.3 mmol/L (3.4-5.1); SGPT/ALT 10 U/L (10-49); TOTAL PROTEIN 6.5 gm/dL (6.0-8.0); TRIGLYCERIDES 98 mg/dl (<150)
[2022-08-24 10:45] LABS: VITAMIN D, 25-HYDROXY 17.9 ng/mL (30-100)
== END | disposition home or self-care (01) ==
LOC: LAB 08:49
PROVIDERS: Family Medicine; ATTEND Family Medicine
DX: E55.9 Vitamin D deficiency, unspecified (principal); E11.42 Type 2 diabetes mellitus with diabetic polyneuropathy; R53.81 Other malaise; R53.83 Other fatigue; R20.2 Paresthesia of skin

== ENCOUNTER → 2023-11-18 | Outpatient (CLI) | payer OTHER | END | disposition home or self-care (01) | LOC: CT 15:00 | PROVIDERS: ATTEND Internal Medicine | DX: Z12.2 Encounter for screening for malignant neoplasm of respiratory organs (principal); R91.1 Solitary pulmonary nodule; I25.10 Atherosclerotic heart disease of native coronary artery without angina pectoris; F17.210 Nicotine dependence, cigarettes, uncomplicated ==